=== PATIENT | male | born 1965 | race Caucasian/White ===

== ENCOUNTER 2023-09-10 11:49 | Emergency (ER) | payer OTHER, SELFPAY ==
[2023-09-10 12:01] VITALS: BP 167/104
--- NOTE | 2023-09-10 13:15 | ED.GENMED ---
History of Present Illness
General
Chief Complaint: Fall
Source: patient
Time Seen by Provider: 09/10/23 12:25
Travel History
Have you had any contact with someone who has COVID-19?: No
Do you have any symptoms of coronavirus? Fever > 100 degrees, chills, cough, shortness of breath, sore throat, loss of taste or smell, muscle aches, or headache?: No
History of Present Illness
History of Present Illness:
57-year-old male with past medical history diabetes presenting emergency department for evaluation after he got home last night around 1:30 AM and while getting out of his [employer] car excellently tripped and fell onto his carry-on luggage landing on
the right anterior rib with pain since. Patient states it hurts to take a deep breath in which is why he presented to the emergency department for further evaluation. No other injuries were sustained outside of mild abrasion to his right elbow.
Patient denies any head injury, loss consciousness, vomiting or any other concerns presently.
Past History
Past History
ED Past Medical History: NIDDM
ED Past Surgical History: Appendectomy and Other (hernia repair)
Social History
Tobacco: Non-smoker
Alcohol: Occasional
Drug: None
Personal:
Living: with family
Employment: Employed
Family History
Family History: Other (Noncontributory)
Review of Systems
Review of Systems
All Other Systems: ROS reviewed and negative except as documented in HPI and ROS
Phy Exam
Physical Exam
Physical Exam:
GENERAL: Alert , in no apparent distress
EYE: conjunctiva clear
NECK: Supple
ENT: o/p clr, mmm.
CARDIAC: Regular rate and rhythm
LUNGS: Clear breath sounds bilaterally, no acute respiratory distress, no wheezes/rales/rhonchi
Chest wall: Tenderness just inferior to the right breast slightly lateral to the midclavicular line but without any overlying breaks in the skin
NEUROLOGICAL: Alert and oriented
SKIN: Warm and dry, skin intact.
MUSCULOSKELETAL: well perfused.
PSYCH: Normal and appropriate interaction.
Scores
Heart Failure Risk
Heart Failure Risk Score: Not Applicable
Heart Score for Chest Pain Patients
STEMI patient?: Not applicable
Withdrawal Assessment of Alcohol
Withdrawal Assessment Completed?: Not applicable
Course
Orders/Labs/Results
Orders:
Orders
09/10/23 12:04
Ribs, Right 3 View W/PA Chest [CR Ribs-right 3 Vw W/pa Chest*] Urgent
Comment:
Reason For Exam: fell on carryon and hit right rib at 130am
09/10/23 12:42
Electrocardiogram (*1) Urgent
Reason for Study: Chest Pain
EKG- Treatment ONCE
Vital Signs
Initial and Last Documented VS:
Initial Vital Signs
Temp Pulse Resp BP Pulse Ox
97.7 F 101 16 167/104 98
09/10/23 12:01 09/10/23 12:01 09/10/23 12:01 09/10/23 12:01 09/10/23 12:01
Last Documented Vital Signs
Temp Pulse Resp BP Pulse Ox
97.7 F 86 18 124/77 95
09/10/23 12:01 09/10/23 13:35 09/10/23 13:35 09/10/23 13:35 09/10/23 13:35
MDM/Problems Addressed
Differential Diagnosis Includes:
Rib fracture, rib contusion, pneumothorax, visceral injury
MDM/Problems Addressed:
57-year-old male present emergency department for evaluation following accidental trip and fall last night landing on a piece of luggage. X-ray was ordered from triage and shows a very questionable fracture of the seventh anterolateral rib. No
pneumothorax seen on x-ray. Advised NSAIDs/Tylenol as needed for pain. Otherwise stable for discharge home.
*Radiology
Radiology exam reviewed: radiology read reviewed
*Pulse Oximetry
Patient hypoxic: no
*Critical Care Note
Total Time (30-74mins, 75-104mins- exclusive of procedures): Not Applicable
ED Attending Note
-
Portions of this chart may have been created with voice recognition software.� Occasional wrong word or��sound alike� substitutions may have occurred due to the inherent limitations of voice recognition software.
Discharge Plan
Departure
Patient Disposition: Home (Routine Discharge)
Date of Disposition: 09/10/23
Time of Disposition: 13:15
Patient with high blood pressure during this ER visit?: Yes
Discharge Problem:
Fracture of rib
Instructions: Rib Fracture (DC)
Prescriptions:
No Action
No Current Medications
metformin 500 MG tablet
500 mg PO BID Qty: 20 1RF
metformin 500 MG tablet
500 mg PO BID Qty: 20 1RF
glimepiride 1 MG tablet
1 mg PO DAILY Qty: 20 1RF
promethazine-codeine 118 ML syrup
5 - 10 ml PO Q8HPRN PRN (Reason: severe cough) Qty: 50 0RF
albuterol sulfate 1 PUFF HFA aerosol inhaler
2 puff inhalation R Q4HPRN PRN (Reason: wheeze) Qty: 1 0RF
levofloxacin 500 MG tablet
500 mg PO DAILY Qty: 9 0RF
cephalexin 500 MG capsule
500 mg PO BID Qty: 19 0RF
famotidine 20 MG tablet
20 mg PO BID Qty: 28 0RF
Rx Instructions:
Take 20 mg twice a day for 14 days
ascorbic acid (vitamin C) [Vitamin C] 500 MG tablet
1,000 mg PO BID Qty: 56 0RF
Rx Instructions:
Take 1,000 mg twice a day for 14 days
aspirin 81 MG tablet,chewable
81 mg PO DAILY Qty: 14 0RF
Rx Instructions:
Take 81 mg daily for 14 days
zinc sulfate 220 MG capsule
220 mg PO DAILY Qty: 14 0RF
Rx Instructions:
Take 220 mg daily for 14 days
cholecalciferol (vitamin D3) 1,000 UNITS tablet
2,000 units PO DAILY Qty: 28 0RF
Rx Instructions:
Take 2,000 units daily for 14 days
melatonin 5 MG tablet
5 mg PO HS Qty: 14 0RF
Rx Instructions:
Take 5 mg daily at bedtime for 14 days
prednisone 10 mg Tablet
See Rx Instructions .ROUTE .COMPLEX Qty: 30 0RF
Rx Instructions:
Take By Mouth:
40 mg daily x3 days, 30 mg daily x3 days,
20 mg daily x3 days, 10 mg daily x3 days.
albuterol sulfate [ProAir HFA] 90 mcg/actuation Hfa Aerosol Inhaler
2 puff INHALATION Q4HPRN PRN (Reason: shortness of breath/cough) Qty: 90 0RF
Rx Instructions:
Dispense with spacer
Referrals:
Navya Valladares CRNP [Family Provider] -
Interventions
Interventions:
*Risk Screen - Suicide Last Done: 09/10/23 12:27
*General Assessment Last Done: 09/10/23 12:27
*Neglect/Abuse Screening Last Done: 09/10/23 12:27
ED- Fall Risk Assessment Last Done: 09/10/23 12:27
*ED COVID-19 Vaccine History Last Done: 09/10/23 12:01
*Nursing Disposition Last Done: 09/10/23 13:35
ED-Musculoskeletal Assessment Last Done: 09/10/23 12:27
ED- Neurological Assessment Last Done: 09/10/23 12:27
ED-Skin Assessment Last Done: 09/10/23 12:27
Discharge Date and Time
Discharge Date/Time: 09/10/23 13:36
--- NOTE | 2023-09-10 13:34 | EDRN ---
Reviewed discharge instructions with patient. Verbalized understanding.
[2023-09-10 13:35] VITALS: BP 124/77
== END 2023-09-10 13:36 | disposition home or self-care (01) ==
LOC: EMR 11:49
PROVIDERS: EMERGENCY PHYSICIAN Emergency Medicine; FAMILY PHYSICIAN Nurse Practitioner Family
DX: S22.31XA Fracture of one rib, right side, initial encounter for closed fracture (principal); W19.XXXA Unspecified fall, initial encounter; E11.9 Type 2 diabetes mellitus without complications
CPT/HCPCS: 99283; 71101; 93005

== ENCOUNTER → 2024-08-03 16:28 | Outpatient (REF) | payer OTHER, SELFPAY | LOC: MRI 3T 16:28 | PROVIDERS: ATTENDING PHYSICIAN Urology; FAMILY PHYSICIAN Nurse Practitioner Family | DX: R97.20 Elevated prostate specific antigen [PSA] (principal) | CPT/HCPCS: 72197; A9575 ==

== ENCOUNTER 2024-08-16 06:26 | Outpatient (RCR) | payer OTHER, SELFPAY | END 2024-08-16 23:59 | disposition home or self-care (01) | LOC: RPT 06:26 | PROVIDERS: ATTENDING PHYSICIAN Urology; FAMILY PHYSICIAN Nurse Practitioner Family | DX: M62.89 Other specified disorders of muscle (principal); Z73.6 Limitation of activities due to disability | CPT/HCPCS: 97112; 97162; 97530 ==

== ENCOUNTER → 2024-08-31 09:14 | Outpatient (REF) | payer OTHER, SELFPAY | LOC: PET 09:14 | PROVIDERS: ATTENDING PHYSICIAN Urology | DX: C61 Malignant neoplasm of prostate (principal) | CPT/HCPCS: 78815 ==

== ENCOUNTER 2024-09-01 06:24 | Day surgery (SDC) | payer OTHER, SELFPAY ==
[2024-08-29 10:55] LABS: Hematocrit 43.9 % (39.0-52.0); Hemoglobin 14.7 g/dL (13.0-18.0); Mean Corp Hgb Conc. 33.5 g/dL (33.0-37.0); Mean Corpuscular Volume 89.6 fL (80.0-94.0); Mean Platelet Volume 10.4 fL (7.4-10.4); Platelet Count 231 10^3/uL (130-400); Red Cell Dist. Width 12.2 % (11.5-14.5); White Blood Cell Count 8.1 10^3/uL (4.8-10.8)
[2024-08-29 11:29] LABS: Blood Urea Nitrogen 22 mg/dl (9-20); Calcium 10.1 mg/dl (8.4-10.2); Carbon Dioxide 27 mmol/L (22-30); Chloride 101 mmol/L (98-107); Glucose 144 mg/dl (70-99); Potassium 4.7 mmol/L (3.5-5.1); Sodium 137 mmol/L (135-145); eGFR > 60.00
[2024-08-29 13:57] VITALS: BMI 35.7
[2024-09-01] VITALS (14 sets, daily range): BP systolic 110–156; BP diastolic 58–90; BMI 35.7
[2024-09-01] MEDS: NORMOSOL-R/PLASMALYTE-A 1000 IV ×2 (11:05→21:21)
[2024-09-01 11:12] LABS: Glucose - Point of Care 149 mg/dl (70-99)
[2024-09-01 13:00] LABS: Glucose - Point of Care 120 mg/dl (70-99)
[2024-09-01 15:05] LABS: Glucose - Point of Care 159 mg/dl (70-99)
[2024-09-01 17:15] LABS: Glucose - Point of Care 170 mg/dl (70-99)
[2024-09-01] MEDS: DILAUDID 0.5 MG IV (17:35)
[2024-09-01 17:38] LABS: Hematocrit 39.7 % (39.0-52.0); Hemoglobin 13.3 g/dL (13.0-18.0)
[2024-09-01 17:56] LABS: Blood Urea Nitrogen 22 mg/dl (9-20); Carbon Dioxide 24 mmol/L (22-30); Chloride 102 mmol/L (98-107); Estimated Creatinine Clearance > 125 ml/min; Glucose 191 mg/dl (70-99); Potassium 4.7 mmol/L (3.5-5.1); Sodium 136 mmol/L (135-145); eGFR > 60.00
[2024-09-01] MEDS: DILAUDID 0.25 MG IV (18:09)
--- NOTE | 2024-09-01 19:00 | PTCARENOTE ---
@ [id number] Received patient from PACU in bed; s/p donovan prostatectomy, lymph node diss (Peffer). Medsurg orders- Post vitals in place.
VSS> afebrile, HR 99, RR 16, BP 134/87, pox 97% 4LNC. No c/o pain. Normosol infusing at 125ml/ hr via #18G Lt arm IV.
x6 incision sites glued/approximated/REAL ESTATE ACCOUNTANT. Lam draining jorgito color urine.
Plan of care discussed with patient and spouse. Call olguin within reach.
--- NOTE | 2024-09-01 19:25 | SUR.PHASEI ---
vss, c/o of abdominal discomfort - urge to move bowels and void; explained feeling was from surgery, treated with dilaudid x2 with some relief, labs to Dr An. Initially received grossly diaphoretic from OR, glucose checked. Sats drift down
with sleep with trial of room air. Nasal O2 continued on transfer to floor. Dr Crawford notified and order for continuous pulse oximetry received. Hand off at bedside on .
[2024-09-01] MEDS: LIPITOR 10 MG PO (20:07)
[2024-09-01] MEDS: ZESTRIL 5 MG PO (20:07)
[2024-09-01] MEDS: SENOKOT 17.2 MG PO (20:08)
[2024-09-01] MEDS: NORMOSOL-R/PLASMALYTE-A IV ×2 (21:21→23:18)
[2024-09-01 21:56] LABS: Glucose - Point of Care 292 mg/dl (70-99)
[2024-09-01] MEDS: TORADOL 15 MG IV (23:17)
[2024-09-02] MEDS: MORPHINE SULFATE 4 MG IV (01:56)
[2024-09-02] MEDS: PERCOCET 5/325 1 TABLET PO ×2 (03:38→16:18)
[2024-09-02 03:41] VITALS: BP 143/87
[2024-09-02] MEDS: TORADOL 15 MG IV ×2 (05:11→12:14)
[2024-09-02 07:06] VITALS: BP 104/70
[2024-09-02 07:06] LABS: Hematocrit 36.2 % (39.0-52.0); Mean Corp Hgb Conc. 33.1 g/dL (33.0-37.0); Mean Corpuscular Hgb 29.9 pg (27.0-31.0); Mean Corpuscular Volume 90.3 fL (80.0-94.0); Mean Platelet Volume 10.5 fL (7.4-10.4); Platelet Count 178 10^3/uL (130-400); Red Blood Cell Count 4.01 10^6/uL (4.70-6.10); Red Cell Dist. Width 12.5 % (11.5-14.5); White Blood Cell Count 9.5 10^3/uL (4.8-10.8)
[2024-09-02 07:36] LABS: Blood Urea Nitrogen 28 mg/dl (9-20); Calcium 8.7 mg/dl (8.4-10.2); Carbon Dioxide 30 mmol/L (22-30); Chloride 99 mmol/L (98-107); Estimated Creatinine Clearance 123 ml/min; Glucose 154 mg/dl (70-99); Potassium 4.6 mmol/L (3.5-5.1); Sodium 137 mmol/L (135-145); eGFR > 60.00
[2024-09-02 08:10] LABS: Glucose - Point of Care 132 mg/dl (70-99)
[2024-09-02 09:50] LABS: Glycohemoglobin (HgbA1c) 7.2 % (4.0-5.6)
[2024-09-02] MEDS: SENOKOT 17.2 MG PO (09:50)
--- NOTE | 2024-09-02 09:54 | W.PN.URO.CBU ---
Today's Communication / Plan
-
Discharge
Assessment / Plan
-
58M with prostate cancer POD 1 s/p RALP/PND
Reg diet
OOB/ambulate
likely discharge today with wilson in place
Diagnosis
-
Date of Service: September 02, 2024
-
Patient Diagnosis:
Prostate cancer
Post Op Day: 1
Subjective
-
has not ambulated
tolerated diet
controlled pain
Objective
-
Vital Signs
Temp Pulse Resp BP Pulse Ox
97.7 F 90 16 104/70 95
09/02/24 07:06 09/02/24 07:06 09/02/24 07:06 09/02/24 07:06 09/02/24 07:06
Intake and Output
09/01/24 09/02/24 09/03/24
06:59 06:59 06:59
Intake Total 3670 / 3670
Output Total 1050 / 1050
Balance 2620 / 2620
Intake:
Oral fluids 1970 / 1970
IV fluids (Total) 1700 / 1700
normosol 200 / 200
Output:
Urine, Wilson 1050 / 1050
Laboratory Results
09/02/24 05:36
09/02/24 05:36
Physical Exam
-
General - well developed, well nourished, no acute distress
Chest - clear bilaterally
Abdomen - soft, non-tender, positive bowel sounds, no CVAT, no incisional pain or distention
Wilson clear urine
[2024-09-02 11:14] VITALS: BP 120/74
--- NOTE | 2024-09-02 11:18 | CM ---
Met with pt at bedside
Pt reports he lives with his in a 2 story home; 2 steps to enter, 12 steps to 2nd fl - + powder room on FF
Independent, employed, drives
DME - none
SNF/HH - no past hx
Has ride at d/c
PCP - Navya Valladares
Pharm - [facility] at [facility] or [facility]
CM consult - - Lam care
Discussed with pt - would like HH. Has no preference
TT sent to [facility] for HH needs
Plan - home with [facility]
--- NOTE | 2024-09-02 11:28 | VNURNOTE ---
Home Health Liaison met with patient at bedside to discuss [facility] nurse/therapy, visits, schedule and homebound status. Patient is agreeable and understands that visits at home will be 2-3 x per week to assess and teach medical management. Patient is
aware that [facility] will contact them for start of care in 1-2 days after discharge from .
[facility] referral completed in [facility].
[2024-09-02 12:12] LABS: Glucose - Point of Care 192 mg/dl (70-99)
[2024-09-02 15:08] VITALS: BP 101/65
== END 2024-09-02 16:30 | disposition home or self-care (01) ==
LOC: SDS 06:24
PROVIDERS: ATTENDING PHYSICIAN Urology; FAMILY PHYSICIAN Nurse Practitioner Family
DX: C61 Malignant neoplasm of prostate (principal); C77.9 Secondary and unspecified malignant neoplasm of lymph node, unspecified
CPT/HCPCS: 55866; 38571; 88305; 88307; 88309; 88332; 36415; 80048; 82962; 83036; 85014; 85018; 85027; 86850; 86900; 86901; 88331; 93005

== ENCOUNTER 2024-12-14 10:06 | Emergency (ER) | payer OTHER, SELFPAY ==
[2024-12-14 10:35] VITALS: BP 129/93
--- NOTE | 2024-12-14 12:08 | ED.GENMED ---
History of Present Illness
General
Chief Complaint: Foreign Body Removal
Time Seen by Provider: 12/14/24 11:22
History of Present Illness
History of Present Illness:
Note:
CHIEF COMPLAINT(S)
The patient presents with a sore foot and a black discoloration.
HISTORY OF PRESENT ILLNESS
The patient is an 82-year-old male with a history of diabetes, who reports experiencing a sore foot since yesterday after playing 18 holes of golf. He noted the soreness upon waking, further confirmed by his , who observed a black discoloration.
The patient does not recall stepping on anything and reports no neuropathic symptoms, stating he can feel everything in his feet. He likens the pain to that of a �tiger or lion.� The black discoloration was noted to possibly be a foreign body or
clotted blood. An examination revealed surrounding redness with streaking, indicative of a skin infection. As a result, it was determined that antibiotics are necessary. An incision and potential ultrasound are planned to further investigate and
address the issue.
CHRONIC MEDICAL CONDITIONS SIGNIFICANTLY AFFECTING CARE
The patient has a known history of diabetes.
PHYSICAL EXAM
- Lower Extremities: Black discoloration observed on the foot, surrounded by redness with streaking extending upwards, indicating a developing skin infection.
PLAN
- Perform an incision and drainage of the affected area to remove any potential foreign bodies or clotted blood.
- Conduct an ultrasound if necessary to identify residual foreign material.
- Initiate antibiotic therapy to address the skin infection.
DIFFERENTIAL DIAGNOSIS
The Differential Diagnosis includes, in no particular order and is not limited to:
1. Foreign body leading to infection.
2. Hematoma with secondary infection.
3. Diabetic foot ulcer with infection.
4. Subungual hematoma.
5. Cellulitis.
6. Osteomyelitis.
7. Gout.
8. Peripheral vascular disease with secondary infection.
9. Deep vein thrombosis.
10. Necrotizing fasciitis.
Disposition:
DIAGNOSIS
- Cellulitis of the right foot (ICD-10 L03.115)
SUMMARY OF ENCOUNTER
The patient, a 59-year-old male, presented with pain to the plantar aspect of the right foot. An examination revealed an abscess with likely foreign bodies centrally located over the plantar aspect of the first metatarsophalangeal (MTP) joint. A
bedside incision and drainage were performed, expressing moderate purulent discharge, and small bits of gravel-like foreign bodies were removed. The surrounding area showed evidence of cellulitis.
ASSESSMENT
The patient has cellulitis around the site of the abscess, likely due to foreign bodies embedded in the foot. The procedure addressed the immediate source of infection, and the patient requires antibiotics to manage any remaining infection.
PLAN
The patient will be started on antibiotic therapy to address the cellulitis. Strict emergency department return parameters were discussed in case symptoms worsen or do not improve.
PROCEDURES
A bedside incision and drainage of the abscess on the plantar aspect of the first MTP joint were performed. Moderate purulent discharge was expressed and small bits of gravel-like foreign bodies were removed. The wound was dressed post-procedure.
PATIENT EDUCATION AND COUNSELING
The patient was advised on the importance of completing the prescribed antibiotics course and monitoring the affected area for any signs of worsening infection. Strict return precautions were explained, emphasizing immediate return to the emergency
department if symptoms worsen.
MEDICATION RECONCILIATION
Antibiotics were prescribed for managing the cellulitis post-procedure.
MEDICAL DECISION MAKING
Number and Complexity of Problems Addressed:
The primary issue addressed was an abscess with cellulitis due to foreign bodies in the foot. The complexity was increased due to the need for both procedural intervention and pharmacological management.
Data:
The identification of the abscess and foreign bodies was based on physical examination. The decision to perform a bedside procedure and initiate antibiotics was informed by these findings.
Risk:
There is a potential need for hospitalization if the infection does respond to outpatient treatment, particularly given his underlying diabetes. Prescription drug management was initiated with antibiotics. The patients tachycardia on arrival
resolved prior to discharge, reducing immediate risk concerns.
Past History
Past History
ED Past Medical History: NIDDM
ED Past Surgical History: Appendectomy and Other (hernia repair)
Social History
Tobacco: Non-smoker
Alcohol: Occasional
Drug: None
Personal:
Living: with family
Employment: Employed
Family History
Family History: Other (Noncontributory)
Phy Exam
Physical Exam
Physical Exam:
.
Course
Vital Signs
Initial and Last Documented VS:
Initial Vital Signs
Temp Pulse Resp BP Pulse Ox
98.4 F 117 20 129/93 98
12/14/24 10:35 12/14/24 10:35 12/14/24 10:35 12/14/24 10:35 12/14/24 10:35
Last Documented Vital Signs
Temp Pulse Resp BP Pulse Ox
98.4 F 117 20 129/93 98
12/14/24 10:35 12/14/24 10:35 12/14/24 10:35 12/14/24 10:35 12/14/24 10:35
*Critical Care Note
Total Time (30-74mins, 75-104mins- exclusive of procedures): Not Applicable
ED Attending Note
-
Portions of this chart may have been created with voice recognition software.� Occasional wrong word or��sound alike� substitutions may have occurred due to the inherent limitations of voice recognition software.
Discharge Plan
Departure
Patient Disposition: Home (Routine Discharge)
Date of Disposition: 12/14/24
Time of Disposition: 12:08
Patient with high blood pressure during this ER visit?: No
Discharge Problem:
Abscess of right foot
Instructions: Skin abscess
Prescriptions:
New
sulfamethoxazole-trimethoprim [Bactrim DS] 800-160 mg tablet
1 tab PO BID 7 Days Qty: 14 0RF
No Action
metformin 500 MG tablet
500 mg PO BID Qty: 20 1RF
atorvastatin 10 mg tablet
10 mg PO QPM
lisinopril 5 mg Tablet
5 mg PO QPM
Ozempic 1 mg/dose (4 mg/3 mL) Pen Injector
1 mg SC TH
oxycodone-acetaminophen 5-325 mg Tablet
1 tab PO Q4HPRN PRN (Reason: moderate pain) Qty: 15 0RF
Referrals:
Navya Valladares CRNP [Family Provider, Family Practice]
Interventions
Interventions:
*Risk Screen - Suicide Last Done: 12/14/24 10:35
*General Assessment Last Done: 12/14/24 10:35
*Neglect/Abuse Screening Last Done: 12/14/24 10:35
*ED- Fall Risk Assessment Last Done: 12/14/24 12:21
*ED COVID-19 Vaccine History Last Done: 12/14/24 10:35
*Nursing Disposition Last Done: 12/14/24 12:21
Discharge Date and Time
Discharge Date/Time: 12/14/24 12:23
Print Language: VIET[place]ESE
--- NOTE | 2024-12-14 12:20 | EDRN ---
patients foot wrapped with re-wrap instructions
== END 2024-12-14 12:23 | disposition home or self-care (01) ==
LOC: EMR 10:06
PROVIDERS: EMERGENCY PHYSICIAN Student in an Organized Health Care Education/Training Program; FAMILY PHYSICIAN Nurse Practitioner Family
DX: L02.611 Cutaneous abscess of right foot (principal); S90.851A Superficial foreign body, right foot, initial encounter; L03.115 Cellulitis of right lower limb; W45.8XXA Other foreign body or object entering through skin, initial encounter; E11.9 Type 2 diabetes mellitus without complications
CPT/HCPCS: 10060; 99283